=== PATIENT | female | born 1975 | race Two or more races ===

== ENCOUNTER → 2022-09-30 09:38 | Outpatient (BNVA) | payer OTHER, SELFPAY | PROVIDERS: PCP Internal Medicine; Referring Provider Internal Medicine; Visit Provider Student in an Organized Health Care Education/Training Program | DX: M79.7 Fibromyalgia (principal); M25.561 Pain in right knee; M67.919 Unspecified disorder of synovium and tendon, unspecified shoulder; G89.29 Other chronic pain | CPT/HCPCS: 99212 ==

== ENCOUNTER 2022-10-11 09:40 | Outpatient (REF) | payer OTHER, SELFPAY ==
--- NOTE | ~2022-10-11 | MR_ITS ---
EXAMINATION: MR KNEE WITHOUT CONTRAST, RIGHT CLINICAL INFORMATION: M23.90 - Unspecified internal derangement of unspecified knee. Right knee pain. COMPARISON: None TECHNIQUE: MRI of the knee without contrast was performed using routine sequences on a high-field scanner. FINDINGS: MENISCI: Medial Meniscus: Subtle inner margin fraying is evident at the posterior horn. No tears. Lateral Meniscus: Intact. LIGAMENTS: Cruciate: Intact. Collateral: Intact. EXTENSOR MECHANISM: Quadriceps and patellar tendons are intact. Retinacula are normal. ARTICULAR CARTILAGE/BONE: Patchy, round foci of increased T2 signal and diminished T1 signal are evident at the distal femur and proximal tibia, more pronounced at the proximal tibial metaphysis. These are ill-defined and measure up to 1.6 cm in diameter. No appreciable associated osteolysis or cortical erosion. An additional focus of similar abnormal signal intensity is present at the tip of the fibular styloid measuring 8 mm in diameter with complete replacement of the normal fat signal. Patellofemoral Compartment: Articular cartilage appears well preserved. Normal trochlear morphology. No fracture or malalignment. TT-TG distance of 1 cm. Medial Compartment: At the posterior nonweightbearing surface of the medial femoral condyle, there is a partial-thickness cartilage loss with full-thickness chondral fissuring and underlying cortical sclerosis and irregularity. Articular cartilage of the weightbearing surface is normal. Lateral Compartment: Normal. JOINT FLUID AND BURSAE: No joint effusion. There is semimembranosus bursitis at the insertion on the posteromedial tibia. No additional bursitis. There is a small 4 x 5 mm chondral loose body in the posterior recess. MR/MR knee RT wo con IMPRESSION: 1. Subtle inner margin fraying at the posterior horn of the medial meniscus. No meniscal tears. 2. Mild medial compartment osteoarthritis characterized primarily by a focal band of chondral fissuring, cartilage loss, and subchondral sclerosis at the posterior nonweightbearing surface of the medial femoral condyle. 3. Patchy foci of marrow signal abnormality in the distal femur and proximal tibia, most notably at the proximal tibial metaphysis. These are of uncertain etiology, potentially due to red marrow reconversion (as can be seen with smoking, obesity, and certain causes of anemia) though other aggressive or infiltrative marrow processes are also possible. Consider obtaining a whole-body bone scan or CBC with smear for further assessment. 4. Semimembranosus bursitis.
== END 2022-10-11 09:41 | disposition home or self-care (01) ==
LOC: HO.MRI 09:40
PROVIDERS: Visit Provider Student in an Organized Health Care Education/Training Program
DX: M23.91 Unspecified internal derangement of right knee (principal)
CPT/HCPCS: 73721

== ENCOUNTER → 2022-11-23 07:47 | Outpatient (BNVA) | payer OTHER, SELFPAY | PROVIDERS: PCP Internal Medicine; Visit Provider Student in an Organized Health Care Education/Training Program | DX: M17.11 Unilateral primary osteoarthritis, right knee (principal); M25.561 Pain in right knee; M79.7 Fibromyalgia; E66.01 Morbid (severe) obesity due to excess calories; Z68.42 Body mass index [BMI] 45.0-49.9, adult | CPT/HCPCS: 20610; 99212 ==

== ENCOUNTER → 2022-12-05 10:48 | Outpatient (REF) | payer OTHER, SELFPAY ==
--- NOTE | ~2022-12-05 | NM_ITS ---
EXAMINATION: NM BONE SCAN OF THE WHOLE BODY CLINICAL INFORMATION: Right knee pain. COMPARISON: Report from MR dated 10/11/2022. TECHNIQUE: Multiple gamma scintillation camera images of the whole body were performed 2.5 hours following the intravenous administration of 41 mCi Tc-99m MDP. FINDINGS: In the head, not imaged. In the thoracic cage and upper extremities, the thoracic cage is partially visualized. Grossly felt to be within normal limits. The upper extremities show some spotty uptake in the carpal regions and MCP joints greater than interphalangeal joints. Similar comparing the right to the left. May well be degenerative in nature. In the spine, the cervical spine is not imaged. The top of the thoracic spine is not imaged. The visualized thoracic and lumbar spine are felt to be within normal limits. In the pelvis, some mild asymmetric uptake in the region of the left SI joint versus the right. This could be degenerative in nature versus artifactual. In the lower extremities, no suspicious uptake in the proximal femurs. Some possible mild uptake in the region of the medial compartment of the left knee. This could be degenerative in nature. Otherwise uptake is fairly symmetric in the knees. Mild uptake in the tarsal bones could be degenerative in nature. No other definite bony abnormalities are noted. The urinary bladder and faint visualization of both kidneys are noted. NM/NM bone scan whole body IMPRESSION: Some minimal areas of asymmetric uptake as described could be degenerative in nature. No convincing evidence for suspicious uptake within the right knee though there appears to be some uptake within the medial compartment of the left knee/distal femoral metaphysis of uncertain etiology. This could be degenerative. Consider plain films or MR.
== END ==
LOC: HO.NUCMED 10:48
PROVIDERS: PCP Internal Medicine; Visit Provider Student in an Organized Health Care Education/Training Program
DX: M25.561 Pain in right knee (principal); G89.29 Other chronic pain
CPT/HCPCS: 78306; A9503

== ENCOUNTER → 2023-02-09 10:47 | Outpatient (BNVA) | payer OTHER, SELFPAY | PROVIDERS: PCP Internal Medicine; Visit Provider Student in an Organized Health Care Education/Training Program | DX: M70.51 Other bursitis of knee, right knee (principal); M67.919 Unspecified disorder of synovium and tendon, unspecified shoulder; M79.7 Fibromyalgia; Z79.899 Other long term (current) drug therapy | CPT/HCPCS: 99212 ==

== ENCOUNTER 2023-08-11 07:45 | Outpatient (AMB) | payer OTHER, SELFPAY ==
--- NOTE | 2023-08-11 07:47 | A.OFFVIS_ITS ---
Intake Vital Signs 08/11/23 07:48 Height 5 ft 3 in Weight 242 lb 8.136 oz BMI 43.0 BP 130/70 Blood Pressure Location Rt brachial Position Sitting Pulse 86 Pulse Source Pulse Oximeter Temp 97.3 F Temp Source Skin Pulse Oximetry (%) 96 Oxygen Delivery Method Room Air Intake Visit Reasons: Semimemb bursitis Intake Note: Pt seen today for follow up. Transportation Project Manager Required: Yes Transportation Project Manager Language: Leather Grainer Name: Maggie [id number] Information Interpreted: clinical only Accompanied by: Self / Same As Patient Allergies lisinopril Allergy (Unknown, Verified 08/11/23 07:54) Cough Medication List - Last Reconciled 08/11/23 by Sherrie Jaramillo MD albuterol sulfate 90 mcg/actuation (ProAir HFA) 2 puffs inhalation QID PRN amlodipine 5 mg PO DAILY bupropion HCl 150 mg PO QAM buspirone 10 mg PO BID cetirizine 10 mg PO DAILY diclofenac sodium 75 mg PO BID diclofenac sodium 1% 4 grams topical QID duloxetine 20 mg PO DAILY fluticasone propionate 220 mcg/actuation (Flovent HFA) 440 mcg inhalation BID gabapentin 900 mg PO TID losartan 50 mg PO DAILY montelukast 10 mg PO DAILY nystatin (Nystop) 1 appl topical BID-TID omeprazole 20 mg PO DAILY sulindac 150 mg PO BID HPI HPI Comments History of Present Illness Details 47-year-old female with fibromyalgia ret urns for follow-up. Last visit I referred her for physical therapy for her right knee semimembranosus bursa [address] [facility] and rotator cuff tendinopathy. Patient stated that physical therapy did not call to schedule an appointment. She continues to complain of diffuse pain everywhere especially the knees, the shoulders, back. She had another injection by physiatry for her right knee which was not helpful. Initial history: This is a 47-year-old female with a past medical history of morbid obesity, anxiety, depression, fibromyalgia, GERD, asthma chronic back pain who presents for evaluation of diffuse pain. Over the last 6 months patient has been having right knee pain worse with walking. Patient has been taking sulindac for the last 3-4 months without relief of her knee pain. She has also developed right heel pain, and was diagnosed with plantar fasciitis. She was given bilateral intra-articular shoulder steroid injections by Dr. Raquel last year with some significant relief of her shoulder pain. For her low back pain she received 2 steroid injections which did not provide significant relief. She continues to have diffuse body pain of fibromyalgia and is on Cymbalta and gabapentin [facility] Medical History Internal derangement of knee Anxiety and depression Migraines Carpal tunnel syndrome Obstructive sleep apnea syndrome, mild GERD (gastroesophageal reflux disease) Hypertension Asthma Chronic back pain Surgical History History of surgery Hx of tubal ligation Hx of appendectomy Family History Mother Fibromyalgia Arthritis ESRD (end stage renal disease) Aortic aneurysm Multiple sclerosis Father Diabetes Emphysema of lung Sister Cervical cancer Social History Household Members: None Do you presently have visiting nurse or other home services: Yes Alcohol intake: current Alcohol intake frequency: does not drink Patient Tobacco Use Status: Never used Tobacco Current occupational status: unemployed Review of Systems Const Reports fatigue and Reports weakness Musc Reports back pain, Reports arthralgias and Reports stiffness Neuro Reports weakness Endo Reports fatigue Physical Exam Vital Signs: Last Vital Signs Temp 97.3 F 08/11/23 07:48 Pulse 86 08/11/23 07:48 BP 130/70 08/11/23 07:48 Pulse Ox 96 08/11/23 07:48 Oxygen Delivery Method Room Air 08/11/23 07:48 BMI result Body Mass Index 43.0 Const General: cooperative, healthy appearing, comfortable and no acute distress Nutritional Appearance: obese morbidly obese Orientation/consciousness: patient oriented x3 Limitations: no limitations HEENT Head: Yes normocephalic and Yes atraumatic Resp Effort & Inspection: normal respiratory effort and able to speak in complete sentences Neuro General: patient oriented x3 Extrem Other: Multiple fibromyalgia tender points Results Reviewed Results Reviewed: X-RAY EXAM OF SHOULDER, COMPLETE Result Date: 06/08/2021 History: Chronic right shoulder pain. Right shoulder, 4 views: FINDINGS: There is no fracture or dislocation. There are mild degenerative changes in the a.c. joint and shoulder outlet. There is no appreciable glenohumeral joint degeneration. There is narrowing of the shoulder outlet. There are no appreciable soft tissue calcifications. The visualized right lung is clear. IMPRESSION Degenerative changes. ? X-RAY EXAM OF SHOULDER, COMPLETE Result Date: 03/30/2016 History: Shoulder pain. Left shoulder, 4 views: There are mild degenerative changes in the a.c. joint and shoulder outlet. There is no appreciable glenohumeral joint degeneration. There are no appreciable soft tissue calcifications. Impression: Degenerative changes. ? X-RAY EXAM OF HAND, 3+ VIEWS Result Date: 06/08/2021 LEFT HAND, 3 VIEWS HISTORY: Tendinitis. FINDINGS: There is no acute fracture, malalignment, joint effusion, soft tissue abnormality, or radiopaque foreign body. IMPRESSION: Normal study. ? X-RAY EXAM OF LOWER SPINE WITH OBLIQUES Result Date: 11/20/2020 Lumbar spine series: HISTORY: Low back pain radiating to left leg 4 views. 7 mm anterolisthesis L4-5. Mild degenerative disc space narrowing L4-5. Degenerative facet disease L4-5 and L5-S1 levels. Sacroiliac joints appear normal. No evidence of spondylolysis. IMPRESSION: Mild degenerative disc space narrowing L4-5 with grade 1 anterolisthesis L4-5 level. X-RAY EXAM OF FOOT, COMPLETE (3 VIEWS) Exam Date: 07/20/2022 2:42 PM Ordering Diagnosis: Plantar fasciitisAchilles tendinitis of right lower extremityRight foot pain ? HISTORY: pain right heel and arch ? TECHNIQUE: AP, lateral, and oblique radiographs of the right foot ? COMPARISON: None ? FINDINGS: The foot demonstrates normal mineralization with no fracture or malalignment. The visualized articulations are normal. Small calcaneal spurs are present. ? IMPRESSION IMPRESSION: No acute fracture or dislocation of the right foot. Small calcaneal spurs are present. ? Reading Radiologist: X-RAY KNEE 4+ VIEW WITH INJURY Exam Date: 04/12/2022 11:00 AM B Ordering Diagnosis: Acute pain of right knee ? EXAM: Right knee x-ray ? HISTORY: Acute right knee pain. ? COMPARISON: None ? VIEWS: 4 views performed. ? FINDINGS: ? Minimal joint space narrowing in the medial compartment and at the patellofemoral joint. No evidence of an acute fracture or malalignment. No destructive bone lesion. No joint effusion. ? IMPRESSION IMPRESSION: ? Early osteoarthritic changes. ? POS - [id number] ? Reading Radiologist: R #: [id number] MR/MR knee RT wo con IMPRESSION: 1. Subtle inner margin fraying at the posterior horn of the medial meniscus. No meniscal tears. ? 2. Mild medial compartment osteoarthritis characterized primarily by a focal band of chondral fissuring, cartilage loss, and subchondral sclerosis at the posterior nonweightbearing surface of the medial femoral condyle. ? 3. Patchy foci of marrow signal abnormality in the distal femur and proximal tibia, most notably at the proximal tibial metaphysis. These are of uncertain etiology, potentially due to red marrow reconversion (as can be seen with smoking, obesity, and certain causes of anemia) though other aggressive or infiltrative marrow processes are also possible. Consider obtaining a whole-body bone scan or CBC with smear for further assessment. ? 4. Semimembranosus bursitis. NM/NM bone scan whole body IMPRESSION: Some minimal areas of asymmetric uptake as described could be degenerative in nature. No convincing evidence for suspicious uptake within the right knee though there appears to be some uptake within the medial compartment of the left knee/distal femoral metaphysis of uncertain etiology. This could be degenerative. Consider plain films or MR. Assessment & Plan Assessment & Plan (1) Semimembranosus bursitis of right knee: Code(s): M70.51 - Other bursitis of knee, right knee Plan: Patient has been having right knee pain for more than 9 months.? Right knee MRI showed findings of osteoarthritis, semimembranosus bursitis, no significant internal derangement.? However it also showed some foci of abnormal signals in the distal femur and proximal tibia which can be associated with aggressive marrow infiltrative processes.??Bone scan was ordered which was unremarkable. Right knee Kenalog injection was done last 10/2024 without relief. I had referred patient to physical therapy for semimembranosus bursitis, patient stated that therapy did not call to schedule the appointment. I gave patient a printout of the physical therapy order at ask her to call her insurance company, inquire about locations where physical therapy would be covered and schedule PT (2) Tendinopathy of rotator cuff: Code(s): M67.919 - Unspecified disorder of synovium and tendon, unspecified shoulder Qualifiers: Laterality: unspecified laterality Qualified Code(s): M67.919 - Unspecified disorder of synovium and tendon, unspecified shoulder Plan: Referred to PT as above (3) Fibromyalgia, primary: Code(s): M79.7 - Fibromyalgia Plan: Was diagnosed for a few years now, she is on gabapentin and Cymbalta. Continue to follow-up with PCP Follow-up as needed Plan I spent 16 minutes reviewing patient's chart, evaluating patient, counseling patient and documenting in the chart Coding Level of Care Code Est Pt Level 3 (68539) Diagnoses Semimembranosus bursitis of right knee M70.51 Tendinopathy of rotator cuff, unspecified laterality M67.919 Laterality: unspecified laterality Fibromyalgia, primary M79.7
[2023-08-11 07:48] VITALS: BP 130/70; PULSE 86; TEMP 36.3; O2SAT 96; BMI 43.0
== END 2023-08-11 08:07 | disposition home or self-care (01) ==
PROVIDERS: PCP Internal Medicine; Visit Provider Student in an Organized Health Care Education/Training Program
DX: M70.51 Other bursitis of knee, right knee (principal); M67.919 Unspecified disorder of synovium and tendon, unspecified shoulder; M79.7 Fibromyalgia
CPT/HCPCS: 99213

== ENCOUNTER → 2023-08-11 07:45 | Outpatient (BNVA) | payer OTHER, SELFPAY | PROVIDERS: PCP Internal Medicine; Visit Provider Student in an Organized Health Care Education/Training Program | DX: M70.51 Other bursitis of knee, right knee (principal); M79.7 Fibromyalgia; M67.919 Unspecified disorder of synovium and tendon, unspecified shoulder | CPT/HCPCS: 99212 ==